=== PATIENT | male | born 1970 | race American Indian/Alaskan Native ===

== ENCOUNTER 2017-07-22 19:51 | Inpatient (IN) | payer BC ==
--- NOTE | 2017-07-22 20:36 | C.PDOC ---
History Of Present Illness 47 y/o male with a hx of alcohol abuse, presents with acute alcohol intoxication requesting detox from alcohol. Patient admits to drinking alcohol today. Denies SI, HI, or somatic complaints. Time Seen by Provider: 07/22/17 20:36 Chief Complaint (Nursing): Substance Abuse History Per: Patient History/Exam Limitations: no limitations Onset/Duration Of Symptoms: Hrs Current Symptoms Are (Timing): Still Present Suicide/Self Injury Attempted (Context): None Modifying Factor(s): Alcohol Severity: Mild Associated Symptoms: denies: Suicidal Thoughts, Suicidal Plan Recent travel outside of the [place]: No Additional History Per: Patient Past Medical History Reviewed: Historical Data, Nursing Documentation, Vital Signs Vital Signs: Last Vital Signs Temp 98 F 07/22/17 23:13 Pulse 80 07/22/17 23:13 Resp 16 07/22/17 23:13 BP 111/76 07/22/17 23:13 Pulse Ox 98 07/22/17 23:13 Family History: States: Unknown Family Hx - Social History Hx Alcohol Use: Yes Hx Substance Use: No - Immunization History Hx Tetanus Toxoid Vaccination: No Hx Influenza Vaccination: No Hx Pneumococcal Vaccination: No Review Of Systems Except As Marked, All Systems Reviewed And Found Negative. Constitutional: Positive for: Other (Acute alcohol intoxication) Cardiovascular: Negative for: Chest Pain Respiratory: Negative for: Shortness of Breath Psych: Negative for: Psychosis, Suicidal ideation, Other (HI) Physical Exam - Physical Exam Appears: Non-toxic, No Acute Distress, Other (Acute alcohol intoxication, (+) AOB) Skin: Warm, Dry Head: Atraumatic, Normacephalic Eye(s): bilateral: Normal Inspection Oral Mucosa: Moist Throat: Normal, No Erythema Chest: Symmetrical Cardiovascular: Rhythm Regular, No Murmur Respiratory: Normal Breath Sounds, No Rales, No Rhonchi, No Wheezing Gastrointestinal/Abdominal: Soft, No Tenderness Neurological/Psych: Oriented x3, No Normal Speech (Slurred), Other (No focal deficit) Gait: Unsteady ED Course And Treatment - Laboratory Results Result Diagrams: 07/22/17 20:40 07/22/17 20:40 O2 Sat by Pulse Oximetry: 100 Pulse Ox Interpretation: Normal Medical Decision Making Medical Decision Making: Plans: * Blood labs * UA 20:20. Pending detox beds availability. Disposition Discussed With : Tawanna Mccoy Doctor Will See Patient In The: Hospital Counseled Patient/Family Regarding: Diagnosis - Disposition Disposition: HOSPITALIZED Disposition Time: 00:47 Condition: STABLE Forms: [facility] (Armenian) - POA Present On Arrival: None - Clinical Impression Clinical Impression: Alcohol use disorder, Substance abuse - Scribe Statement The provider has reviewed the documentation as recorded by the Jonoibisha Almanza All medical record entries made by the Scribe were at my direction and personally dictated by me. I have reviewed the chart and agree that the record accurately reflects my personal performance of the history, physical exam, medical decision making, and the department course for this patient. I have also personally directed, reviewed, and agree with the discharge instructions and disposition.
[2017-07-22 20:43] LABS: BASO # 0.1 K/uL (0.0-0.2); BASO % 2.4 % (0.0-2.0); EOS # 0.4 K/uL (0.0-0.7); EOS % 6.5 % (0.0-4.0); HEMATOCRIT 43.3 % (35.0-51.0); LYMPH # 2.4 K/uL (1.0-4.3); LYMPH % 39.7 % (20.0-40.0); MEAN CELL VOLUME 82.9 fL (80.0-94.0); MEAN CORPUSCULAR HEMOGLOBIN 27.9 pg (27.0-31.0); MEAN CORPUSCULAR HGB CONC 33.6 g/dL (33.0-37.0); MEAN PLATELET VOLUME 7.8 fL (7.2-11.7); MONO # 0.5 K/uL (0.0-0.8); MONO % 7.7 % (0.0-10.0); NRBC % 0.2 % (0.0-2.0); RED CELL DISTRIBUTION WIDTH 15.3 % (11.5-14.5); WHITE BLOOD COUNT 6.1 K/uL (4.8-10.8)
[2017-07-22 20:56] LABS: ALCOHOL SERUM 243 mg/dl (0-10); ALKALINE PHOSPHATASE 97 U/L (38-126); ALT/SGPT 62 U/L (21-72); AST/SGOT 62 U/L (17-59); BLOOD UREA NITROGEN 16 mg/dL (9-20); CALCIUM 8.4 mg/dl (8.6-10.4); CARBON DIOXIDE 17 mmol/L (22-30); CHLORIDE 105 mmol/L (98-107); GFR AFRICAN-AMERICAN > 60; GLUCOSE,RANDOM 87 mg/dL (75-110); POTASSIUM 3.9 mmol/L (3.6-5.2); SODIUM 139 mmol/L (132-148); TOTAL PROTEIN 7.7 g/dL (6.3-8.3)
[2017-07-22 23:39] LABS: RBC URINE 3 /hpf (0-3); URINE BACTERIA RARE (<OCC); URINE BILIRUBIN NEGATIVE (NEGATIVE); URINE COLOR Straw (YELLOW); URINE GLUCOSE (UA) NORMAL (Normal); URINE KETONE NEGATIVE (NEGATIVE); URINE LEUKOCYTE ESTERASE NEG Leu/uL (Negative); URINE PROTEIN NEGATIVE (NEGATIVE); URINE UROBILINOGEN NORMAL mg/dL (0.2-1.0); WBC URINE 1 /hpf (0-5)
[2017-07-22 23:40] LABS: URINE BLOOD TRACE (NEGATIVE)
--- NOTE | 2017-07-23 04:07 | PCM.BM ---
<Santi Brantley - Last Filed: 07/23/17 04:06> Treatment Plan Problems - Problems identified on initial assessmt Alcohol Abuse Date Initiated: 07/23/17 Time Initiated: 02:15 Assessment reference: NA Status: Active Treatment assets and liabiliti Patient Assests: ADL independent, physically healthy, good support system, negotiates basic needs Patient Liabilities: substance abuse (ETOH, Benzo), medical problems - Milieu Protocol Maintain good personal hygiene: daily Encourage regular showers, daily Remind patient to perform daily oral care Conduct patient checks and document Observation sheet: Q15 minutes Maintain personal safety: every shift Educate patient to report safety concerns to staff, every shift Monitor environment for contraband/sharps Medication safety: Monitor for expected outcome, potential side effects: every shift, Assess barriers to learning: every shift, Assess readiness for medication education: every shift <Maryan Bravo - Last Filed: 07/24/17 11:38> Family Contact Family involvement: Famliy/SO not involved Family contact: Patient declines to allow family contact at present - Goals for Treatment Patient goals for treatment: Complete detox and apply for IOP. Discharge/Continuing Care - Education Needs Education Needs: Patient Medication, Patient Diagnosis/Disease Process, Patient Coping Skills, Patient Anger Management skills, Patient Placement options, Patient Community resources - Discharge Discharge Criteria: No longer exhibiting s/s of withdrawal, Reduction of target symptoms Discharge to:: Home - Treatment Team Participation Patient/Family/SO Statement: 07/24/17 11:39 "I'd like to go to IOP after detox." Discussed with Family/SO: No Was Patient/Family/SO present at Treatment Team Meeting: Yes <Inessa Ahuja - Last Filed: 07/24/17 13:31> - Diagnosis (1) Alcohol use disorder Status: Acute Interventions: 07/24/17 13:31 * Assess 7x/week regarding severity of withdrawal * Educate regarding risks, benefits, side effects and alternatives of medications * Use Motivational Interviewing for abstinence * Use CBT for relapse prevention * Medication management for withdrawal symptoms * Encourage medication assisted treatment *
[2017-07-23] MEDS: Multiple Vitamins Tab PO SCH (09:26)
--- NOTE | 2017-07-23 11:32 | PCM.PSYCH ---
Initial Psychiatric Evaluation - Initial Psychiatric Evaluation Type of Admission: Voluntary Legal Status: Capacity Chief Complaint (in patient's own words): "Alcohol" History of Present Illness and Precipitating Events: Pt. is seen, chart reviewed, and case discussed with staff. This is a 47 y/o male who was admitted for alcohol. Pt is with 3 children of 21, 23, and 25. Pt currently works as a intermodal truck driver. Pt. claims to drink 2 pints of hard liquor everyday. He claims he drinks because of stress from working as intermodal truck driver, as a method for coping with his father's , and from the pressure of being "the man who provides for his family." Pt. admits to using 8mg of Xanax a day. Pt denies other substance. Pt admits to prior heroin use around 1990. Currently, pt. is only experiencing withdrawal sxs but denies psych sx except for some depression. Past psych history: Denies Family psych history: Denies Medical history: Denies Current Medications: Active Medications Generic Name Dose Route Start Last Admin Trade Name Mike PRN Reason Stop Dose Admin Chlordiazepoxide 25 mg 07/23/17 09:58 Librium PO Q4H PRN Alcohol Withdrawal Chlordiazepoxide 0 mg 07/23/17 12:00 Librium PO 07/27/17 11:59 Q6 VALERY Taper Clonidine HCl 0.1 mg 07/23/17 01:15 Catapres PO Q4H PRN Symptoms of alcohol withdrawl Folic Acid 1 mg 07/23/17 10:00 07/23/17 09:26 Folic Acid PO 1 mg DAILY VALERY Administration Gabapentin 400 mg 07/23/17 10:00 07/23/17 10:57 Neurontin PO 400 mg TID VALERY Administration Hydroxyzine HCl 50 mg 07/23/17 09:52 Atarax PO Q6H PRN Anxiety Multivitamins 1 tab 07/23/17 10:00 07/23/17 09:26 Hexavitamin PO 1 tab DAILY VALERY Administration Nicotine 1 patch 07/23/17 10:00 07/23/17 10:57 Nicoderm Cq TD 1 patch DAILY VALERY Administration Thiamine HCl 100 mg 07/23/17 10:00 07/23/17 09:26 Vitamin B1 Tab PO 100 mg DAILY VALERY Administration Trazodone HCl 100 mg 07/23/17 22:00 Desyrel PO HS PRN Insomnia Past Psychiatric History - Past Psychiatric History Previous Treatment History: None Pertinent Medical Hx (Current Medical&Sleep Prob, Allergies): Allergies Allergy/AdvReac Type Severity Reaction Status Date / Time No Known Allergies Allergy Verified 07/22/17 19:59 traZODone [Desyrel] 100 mg PO DAILY 07/22/17 Review of Systems - Neurological Neurological: Tremor - Psychiatric Psychiatric: Abnormal Sleep Pattern, Anxiety, Irritability. absent: Hallucinations, Homicidal Ideation, Suicidal Ideation Mental Status Examination - Personal Presentation Personal Presentation: Looks stated age - Affect Affect: Constricted - Motor Activity Motor Activity: Calm - Reliability in Providing Information Reliability in Providing Information: Good - Speech Speech: Organized (slowed) - Mood Mood: Depressed, Anxious - Formal Thought Process Formal Thought Process: No Impairment - Cognitive Functions Orientation: Person, Place, Situation, Time Sensorium: Alert Attention/Concentration: Attentive Estimate of Intelligence: Average Judgement: Intact, as evidence by: Insight regarding need for hospitalization Memory: Recent intact, as evidence by: Ability to recall events of the day, Remote intact, as evidenced by: Ability to recall historical events - Risk Risk: Seizure, Withdrawal, Diminished functioning - Strength & Assets Inventory Strength & Assets Inventory: Family support, Cooperative - Limitations Limitations: Other DSM 5 DX - DSM 5 DSM 5 Diagnosis: Alcohol withdrawal Alcohol use d/o - severe Sedative, 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 Depression unspecified 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
[2017-07-24] MEDS: Multiple Vitamins Tab PO SCH (09:51)
--- NOTE | 2017-07-24 14:05 | PCM.PYCHPN ---
Psychiatric Progress Note - Psychiatric Progress Note Patient seen today, length of contact: 17 min Patient Chief Complaint: "Alcohol" Problems Identified/Issues Discussed: The pt is seen, chart reviewed, case discussed with staff. he is displaying signs of alcohol-induced memory problems. He is very forgetful and inattentive His speech is also sometimes rambling and loose He is fixated on calling his who brought him to ED and sounds like pt has minimal interest in sobriety and does not agree with her. Pt states that he is "sleeping well". Pt future discharge date was discussed - likely Than The pt is compliant with medications and reports no side-effects. Symptoms are improving but needs more time to stabilize. After care discussed, support and psychoeducation given. Medication Change: Yes (Detox Changes Daily) Medical Record Reviewed: Yes Mental Status Examination - Cognitive Function Orientation: Person, Place, Situation, Time Memory: Impaired Attention: Poor Concentration: Poor Association: WNL Fund of Knowledge: Poor - Mood Mood: Depressed, Anxious - Affect Affect: Constricted - Speech Speech: Appropriate - Formal Thought Process Formal Thought Process: No Impairment - Suicidal Ideation Suicidal Ideation: No - Homicidal Ideation Homicidal Ideation: No Goal/Treatment Plan - Goal/Treatment Plan Need for Continued Stay: Discharge may exacerbated symptoms, Severe functional impairment Progress Toward Problem(s) and Goals/Treatment Plan: Librium detox continues As needed medications Gabapentin for augmentation Attend groups and activities Supportive therapy and psychoeducation [place] for abstinence CBT for relapse prevention Encourage MAT Refer to rehab or IOP Attend self-help groups as well CBt and support for dep sxs
[2017-07-25] MEDS: Multiple Vitamins Tab PO SCH (09:53)
--- NOTE | 2017-07-25 11:34 | PCM.PYCHPN ---
Psychiatric Progress Note - Psychiatric Progress Note Patient seen today, length of contact: 15 min Patient Chief Complaint: "better today" Problems Identified/Issues Discussed: The pt is seen, chart reviewed, case discussed with staff. Support given, CBT and MT used briefly No new symptoms reported, improving slowly and needs more time he is more lucid today No SEs from medications, risks discussed. After care discussed Medication Change: Yes (Detox Changes Daily) Medical Record Reviewed: Yes Mental Status Examination - Cognitive Function Orientation: Person, Place, Situation, Time Memory: Impaired Attention: Poor Concentration: Poor Association: WNL Fund of Knowledge: Poor - Mood Mood: Depressed, Anxious - Affect Affect: Constricted - Speech Speech: Appropriate - Formal Thought Process Formal Thought Process: No Impairment - Suicidal Ideation Suicidal Ideation: No - Homicidal Ideation Homicidal Ideation: No Goal/Treatment Plan - Goal/Treatment Plan Need for Continued Stay: Discharge may exacerbated symptoms, Severe functional impairment Progress Toward Problem(s) and Goals/Treatment Plan: Librium detox continues As needed medications Gabapentin for augmentation Attend groups and activities Supportive therapy and psychoeducation [place] for abstinence CBT for relapse prevention Encourage MAT Refer to rehab or IOP Attend self-help groups as well CBt and support for dep sxs Estimated Date of D/C: 07/27/17
[2017-07-26 06:56] VITALS: RESP 20
[2017-07-26 08:12] VITALS: BP 120/83; PULSE 100; TEMP 97.7; O2SAT 100
--- NOTE | 2017-07-26 09:06 | PCM.PYCHDC ---
Mental Status Examination - Mental Status Examination Orientation: Person, Place, Situation, Time Memory: Impaired Mood: Anxious Affect: Constricted Speech: Appropriate Attention: WNL Concentration: Poor Association: WNL Fund of Knowledge: WNL Formal Thought Process: No Impairment Suicidal Ideation: No Current Homicidal Ideation?: No Discharge Summary - Discharge Note Consultations:: List each consultation separately and include: 1. Reason for request. 2. Findings. 3. Follow-up Summary of Hospital Course include:: 1. Description of specific treatment plan utilized for patients during their course of treatmen. 2. Summarize the time- course for resolution of acute symptoms and/or regressed behaviors. 3. Describe issues identified and worked on during hospitalization. 4. Describe medication utilized. 5. Describe medical problems identified and treated. 6. Reassessment of suicide risk Summary of Hospital Course: Pt. is seen, chart reviewed, and case discussed with staff. This is a 47 y/o male who was admitted for alcohol. Pt is with 3 children of 21, 23, and 25. Pt currently works as a assembler truck trailer. Pt. claims to drink 2 pints of hard liquor everyday. He claims he drinks because of stress from working as assembler truck trailer, as a method for coping with his father's , and from the pressure of being "the man who provides for his family." Pt. admits to using 8mg of Xanax a day. Pt denies other substance. Pt admits to prior heroin use around 1990. Currently, pt. is only experiencing withdrawal sxs but denies psych sx except for some depression. Past psych history: Denies Family psych history: Denies Medical history: Denies Pt will go to [facility] - Final Diagnosis (DSM 5) Condition upon Discharge: STABLE Disposition: HOME/ ROUTINE Prescriptions/Medication Reconciliation: Gabapentin [Neurontin] 400 mg PO BID #60 cap Multivitamins [Hexavitamin] 1 tab PO DAILY #30 tab traZODone [Desyrel] 100 mg PO HS PRN #30 tab PRN Reason: Insomnia
[2017-07-26] MEDS: Multiple Vitamins Tab PO SCH (09:16)
== END 2017-07-26 09:30 | disposition home or self-care (01) | DRG 897 ==
LOC: C.ER 19:51 → C.7D 07-23 00:48
PROVIDERS: ADMIT Psychiatry & Neurology Psychiatry; ATTEND Psychiatry & Neurology Psychiatry
DX: F10.229 Alcohol dependence with intoxication, unspecified (principal); F11.21 Opioid dependence, in remission; F10.239 Alcohol dependence with withdrawal, unspecified; Y90.8 Blood alcohol level of 240 mg/100 ml or more